=== PATIENT | female | born 1995 | race Caucasian/White ===

== ENCOUNTER → 2019-06-23 | Outpatient (CLI) | payer OTHER | LOC: OD 09:47 | PROVIDERS: ATTEND Family Medicine | DX: Z83.49 Family history of other endocrine, nutritional and metabolic diseases (principal) | CPT/HCPCS: 36415; 84436; 84443; 84480 ==

== ENCOUNTER 2020-04-09 11:36 | Outpatient (CLI) | payer OTHER ==
[2020-04-09 12:32] LABS: APPEARANCE,URINE CLOUDY; BILIRUBIN,URINE NEGATIVE (NEGATIVE); COLOR,URINE YELLOW; GLUCOSE, URINE NEGATIVE (NEGATIVE); KETONES,URINE NEGATIVE (NEGATIVE); LEUKOCYTE ESTERASE,URINE MODERATE (NEGATIVE); NITRITE,URINE NEGATIVE (NEGATIVE); PROTEIN,URINE 30 mg/dL (NEGATIVE); URINE SPECIFIC GRAVITY 1.019; UROBILINOGEN,URINE NEGATIVE mg/dL (<2.0)
[2020-04-09 12:44] LABS: ABSOLUTE LYMPHOCYTES (AUTO) 1.3 10^3/uL (0.5-4.7); ABSOLUTE MONOCYTES (AUTO) 0.5 10^3/uL (0.1-1.4); ABSOLUTE NEUT (AUTO) 6.4 10^3/uL (1.7-8.2); BASOPHILS % (AUTO) 0.2 % (0-2); EOSINOPHILS % (AUTO) 0.6 % (0-6); HEMATOCRIT 34.2 % (36.0-47.0); HEMOGLOBIN 11.6 g/dL (12.0-15.5); LYMPHOCYTES % (AUTO) 15.3 % (13-45); MEAN CORPUSCULAR HEMOGLOBIN 27.2 pg (27.0-33.4); MEAN CORPUSCULAR HGB CONC 33.9 g/dL (32.0-36.0); MEAN CORPUSCULAR VOLUME 80 fl (80-97); MONOCYTES % (AUTO) 6.5 % (3-13); PLATELET COUNT 118 10^3/uL (150-450); RED BLOOD COUNT 4.26 10^6/uL (3.72-5.28); RED CELL DISTRIBUTION WIDTH 13.8 % (11.5-14.0); SEGMENTED NEUTROPHILS % (AUTO) 77.4 % (42-78); TOTAL CELLS COUNTED % (AUTO) 100 %; WHITE BLOOD COUNT 8.3 10^3/uL (4.0-10.5)
[2020-04-09 12:47] LABS: URINE AMPHETAMINES SCREEN NEGATIVE; URINE BARBITURATES SCREEN NEGATIVE; URINE BENZODIAZEPINES SCREEN NEGATIVE; URINE COCAINE SCREEN NEGATIVE; URINE MARIJUANA (THC) SCREEN NEGATIVE; URINE METHADONE SCREEN NEGATIVE; URINE PHENCYCLIDINE SCREEN NEGATIVE
[2020-04-09 13:03] LABS: ALBUMIN 3.5 g/dL (3.5-5.0); ALKALINE PHOSPHATASE 87 U/L (38-126); AMYLASE 55 U/L (30-110); ANION GAP 6 (5-19); ASPARTATE AMINO TRANSFERASE 16 U/L (14-36); BILIRUBIN,TOTAL 0.7 mg/dL (0.2-1.3); BLOOD UREA NITROGEN 6 mg/dL (7-20); CARBON DIOXIDE 22 mmol/L (22-30); CHLORIDE 106 mmol/L (98-107); GLUCOSE 97 mg/dL (75-110); POTASSIUM 3.8 mmol/L (3.6-5.0); TOTAL PROTEIN 6.3 g/dL (6.3-8.2)
--- NOTE | 2020-04-09 13:21 | Non Stress Test Report ---
Non Stress Test Datetime Report Generated by CPN: 04/09/2020 13:21 DEMOGRAPHIC EGA NST: 34.1 INDICATION Indication for Study (NST) Other: abd pain MONITORING Monitor Explained: Monitor Explained; Test Explained; Patient Verbalized Understanding Time on Monitor: 04/09/2020 12:03 Time off Monitor: 04/09/2020 13:15 NST Duration: 72 NST INTERVENTIONS NST Interventions: PO Hydration; Reposition Patient Physician Notified NST: Dr. Miranda on unit, reviewed fht. BABY A: [id number] BABY A Movement : Present Contraction Frequency : none FHR Baseline : 150 Accelerations : 15X15 Decelerations : None Variability : Moderate 6-25bpm NST Review: Meets Criteria for Reactive NST NST Review and Verified By : Aziza Umana RN NST Results: Reactive NST REPORT Report Trigger: Send Report
== END 2020-04-09 13:32 | disposition home or self-care (01) ==
LOC: LC 11:36
PROVIDERS: ATTEND Student in an Organized Health Care Education/Training Program
DX: O99.283 Endocrine, nutritional and metabolic diseases complicating pregnancy, third trimester (principal); E86.0 Dehydration; R10.9 Unspecified abdominal pain; M54.9 Dorsalgia, unspecified; Z3A.34 34 weeks gestation of pregnancy
CPT/HCPCS: 36415; 59025; 80053; 80307; 81005; 82150; 83690; 85025; 87086

== ENCOUNTER 2020-05-17 01:25 | Inpatient (IN) | payer OTHER ==
[2020-05-11 16:01] LABS: ABSOLUTE LYMPHOCYTES (AUTO) 1.7 10^3/uL (0.5-4.7); ABSOLUTE MONOCYTES (AUTO) 0.7 10^3/uL (0.1-1.4); ABSOLUTE NEUT (AUTO) 7.3 10^3/uL (1.7-8.2); BASOPHILS % (AUTO) 0.2 % (0-2); EOSINOPHILS % (AUTO) 0.3 % (0-6); HEMATOCRIT 38.2 % (36.0-47.0); HEMOGLOBIN 12.5 g/dL (12.0-15.5); LYMPHOCYTES % (AUTO) 17.5 % (13-45); MEAN CORPUSCULAR HEMOGLOBIN 25.9 pg (27.0-33.4); MEAN CORPUSCULAR HGB CONC 32.8 g/dL (32.0-36.0); MEAN CORPUSCULAR VOLUME 79 fl (80-97); MONOCYTES % (AUTO) 7.6 % (3-13); PLATELET COUNT 129 10^3/uL (150-450); RED BLOOD COUNT 4.83 10^6/uL (3.72-5.28); RED CELL DISTRIBUTION WIDTH 14.5 % (11.5-14.0); SEGMENTED NEUTROPHILS % (AUTO) 74.4 % (42-78); TOTAL CELLS COUNTED % (AUTO) 100 %; WHITE BLOOD COUNT 9.9 10^3/uL (4.0-10.5)
[2020-05-11 16:09] LABS: APPEARANCE,URINE CLEAR; BILIRUBIN,URINE NEGATIVE (NEGATIVE); COLOR,URINE YELLOW; GLUCOSE, URINE NEGATIVE (NEGATIVE); KETONES,URINE NEGATIVE (NEGATIVE); LEUKOCYTE ESTERASE,URINE NEGATIVE (NEGATIVE); NITRITE,URINE NEGATIVE (NEGATIVE); PROTEIN,URINE NEGATIVE (NEGATIVE); URINE SPECIFIC GRAVITY 1.011; UROBILINOGEN,URINE NEGATIVE mg/dL (<2.0)
[2020-05-11 16:33] LABS: URINE AMPHETAMINES SCREEN NEGATIVE; URINE BARBITURATES SCREEN NEGATIVE; URINE BENZODIAZEPINES SCREEN NEGATIVE; URINE COCAINE SCREEN NEGATIVE; URINE MARIJUANA (THC) SCREEN NEGATIVE; URINE METHADONE SCREEN NEGATIVE; URINE PHENCYCLIDINE SCREEN NEGATIVE
[2020-05-17] MEDS ORDERED: CEFAZOLIN 2 GM/D5W RTU 2 GM/50 ML RTUPB IV PRN (05:00)
[2020-05-17] MEDS ORDERED: OXYTOCIN/0.9 % SODIUM CHLORIDE 30 UNIT/500 ML RTUINJ ONE (07:39)
[2020-05-17] MEDS ORDERED: ROPIVACAINE HCL 0.2% INJ/PF (2 MG/ML) 20 ML SDV ONE ×2 (07:39→10:04)
[2020-05-17] MEDS ORDERED: FENTANYL CITRATE INJ/PF 100 MCG/2 ML AMPUL ONE (07:39)
[2020-05-17] MEDS ORDERED: OXYTOCIN 10 UNIT/ML VIAL ONE (07:39)
[2020-05-17] MEDS ORDERED: KETOROLAC TROMETHAMINE INJ/PF 30 MG/1 ML SDV ONE (07:39)
[2020-05-17] MEDS ORDERED: PHENYLEPHRINE HCL INJ/PF 10 MG/1 ML SDV ONE (07:39)
[2020-05-17] MEDS ORDERED: ONDANSETRON HCL INJ/PF 4 MG/2 ML SDV ONE (07:40)
[2020-05-17] MEDS ORDERED: ACETAMINOPHEN 1,000 MG/100 ML RTUPB IV ONE (07:40)
[2020-05-17] MEDS ORDERED: FENTANYL CITRATE INJ/PF 100 MCG/2 ML AMPUL IV PRN ×3 (08:45)
[2020-05-17] MEDS ORDERED: OXYCODONE-ACETAMINOPHEN 5-325 MG TABLET PO PRN ×3 (08:45→09:46)
[2020-05-17] MEDS ORDERED: ONDANSETRON HCL INJ/PF 4 MG/2 ML SDV IV PRN (08:45)
[2020-05-17] MEDS ORDERED: MORPHINE SULFATE 10 MG/ML INJ IV PRN (08:45)
[2020-05-17] MEDS ORDERED: MEPERIDINE HCL/PF INJ 25 MG/1 ML DISP.SYRIN IV PRN (08:45)
[2020-05-17] MEDS ORDERED: DIPHENHYDRAMINE HCL 50 MG/ML VIAL IV PRN (08:45)
[2020-05-17] MEDS ORDERED: PROMETHAZINE HCL INJ 25 MG/1 ML VIAL IV PRN ×3 (08:45→09:46)
[2020-05-17] MEDS ORDERED: DIPH/PERTUSS(ACELL)/TETANUS VAC/PF 0.5 ML SYR (>=10YO) IM PRN (09:46)
[2020-05-17] MEDS ORDERED: SIMETHICONE 80 MG TAB.CHEW PO PRN (09:46)
[2020-05-17] MEDS ORDERED: RINGERS SOLUTION,LACTATED 1,000 ML IV PRN (09:46)
[2020-05-17] MEDS ORDERED: DEXTROSE 40% GEL 15 GM TUBE PO PRN ×2 (09:46)
[2020-05-17] MEDS ORDERED: OXYTOCIN/0.9 % SODIUM CHLORIDE 30 UNIT/500 ML RTUINJ IV PRN (09:46)
[2020-05-17] MEDS ORDERED: ACETAMINOPHEN 325 MG TABLET PO PRN (09:46)
[2020-05-17] MEDS ORDERED: GLUCAGON,HUMAN RECOMB 1 MG INJ SUBCUT PRN (09:46)
[2020-05-17] MEDS ORDERED: MEASLES,MUMPS&RUBELLA VACC/PF 0.5 ML VIAL SUBCUT PRN (09:46)
[2020-05-17] MEDS ORDERED: DEXTROSE 50%-WATER 25 GM/50 ML DISP.SYRIN IV PRN ×2 (09:46)
[2020-05-17] MEDS ORDERED: HYDROMORPHONE HCL INJ/PF 2 MG/ML AMPULE IV PRN (09:49)
--- NOTE | 2020-05-17 10:11 | Operative Report ---
Operative Report DATE OF SURGERY: 05/17/20 PREOPERATIVE DIAGNOSIS: Intrauterine at 39 + weeks EGA. Breech prese ntation POSTOPERATIVE DIAGNOSIS: Same as above. Left paratubal cyst OPERATION: Primary section and removal of left paratubal cyst SURGEON: JAIRO CONNER ANESTHESIA: Spinal TISSUE REMOVED OR ALTERED: Placenta and left paratubal cyst COMPLICATIONS: None ESTIMATED BLOOD LOSS: 300 QUANTITATIVE BLOOD LOSS: 303 INTRAOPERATIVE FINDINGS: Normal appearing uterus with small 1.5 cm fibroid subserosal on posterior lower uterus. Bilateral ovaries are normal as is right fallopian tube. Left fallopian tube is normal but there is a 2 cm paratubal cyst. AMniotic fluid clear, small amount. Rommel breech presentation. Umbilical cord short. Viable female with Apgars of 8,9 at one and five minutes. PROCEDURE: IV fluids: per anesthesia record Urinary output: 300 cc clear yellow urine Findings: Normal-appearing uterus with 1.5 cm subserosal fibroid on posterior lower uterus, bilateral ovaries normal, right fallopian tube negative, left fallopian tube with 2 cm paratubal cyst. Placenta grossly normal. Viable female with Apgars of 8 and 9, at 1 and 5 minutes respectively. Position: To recovery room in stable condition Description of procedure: The patient was taken to the operating room and spinal anesthesia was administered and found to be adequate. She was then placed on the OR table in the supine position with a slight leftward tilt. Patient was prepped and draped in usual sterile fashion. Ancef 2 gms was given IV prior to the procedure for infection prophylaxis. Timeout was taken. A Pfannenstiel skin incision was then made approximately 3 cm above the pubic symphysis and carried down to level the rectus fascia. The rectus fascia was then nicked in the midline with a scalpel and the fascial incision was extended laterally with use of curved Martins scissors. The rectus fascia was then grasped with 2 Kocker clamps elevated and the underlying rectus muscle was dissected off both bluntly and sharply. Any bleeding controlled with cautery. The rectus muscles were then split in the midline and the peritoneum was entered. The peritoneal incision was then extended by manually stretching the peritoneum. The bladder blade was positioned. Using pick ups and metsenbaum scissors a bladder flap was created and bladder digitly moved out of harms way. The bladder was then noted to be out of harm's way. A scalpel was then used in the lower uterine for the hysterotomy, slowly until amniotomy was obtained a scant amount of fluid was noted. The uterine incision was then manually stretched. The infant was noted to be in rommel postion back up. The hips were brought to the hysterotomy incision and delivered. Back delivered to the level of the scapula. The legs were then flexed at the knee and reduced. THe chest was turned side to side allowing delivery of each arm. The chest was elevated toward maternal head and the head then delivered with minmal difficulty. The cord was cut clamped and the infant was handed off to the nurse awaiting. began crying after hand off and had good tone during hand off. The placenta was manually delivered. Using a lap gauze the uterus was cleared of all clots and debris. The uterus was then exteriorized and a bladder blade was repositioned. The uterine incision was then closed with 0 Chromic suture in a running locked fashion. A second layer of the same suture was used in a running locked imbricated fashion. The uterine incision was inspected and noted to be hemostatic. The posterior aspect of the uterus was then inspected and anatomy was seen as above. Warm saline was used to remove any clot or debris. Using bovie and hemostat the paratubal cyst was removed from the left mesosalpinx. It was removed intact. The uterus remained firm and was returned to its normal anatomic position within the abdominal cavity. Warm saline irrigation was used to clear all clots and debris from the abdomen. The uterine incision was inspected once more and noted to remain hemostatic. The bladder blade was removed and the peritoneum was closed with 2-0 chromic in a running fashion. The rectus muscles were then reapproximated and the rectus fascia was closed with a #1 PDS in a running fashion. The subcutaneous tissue was then inspected and any bleeding was controlled with Bovie electrocautery. The subcutaneous tissue was then closed with 2-0 Plain Gut suture in a running fashion. The skin was then closed with 4- 0 Monocryl in a running subcuticular fashion. The skin incision was then clean dried and Dermabond was applied over the skin incision. All instrument sponge and needle counts were correct x3 for the procedure the patient tolerated the procedure well. She will proceed to recovery room in stable condition
--- NOTE | 2020-05-17 10:17 | PDOC DELIVERY SUMMARY ---
Delivery Summary - Maternal Hx : I Hx # Term Pregnancies: 1 GUERO: 05/20/20 Gestational Age: 39+4 - Delivery Presentation: Breech Heart Rate Monitoring: Done Pre-Operatively Support Person Present: Yes Location: OR : Scheduled, Primary Placenta: Within Normal Limits Placenta Description: Grosslly normal. Manually delivered intact. Number of Vessels (Cord): 3 - Cord short Nuchal Cord: No Estimated Blood Loss: 300cc Delivery Quantitative Blood Loss (QBL): 303 - Medications Type of Anesthesia:: Spinal - Delivery Personnel RN: PEPPER ROE MD: JAIRO CONNER
[2020-05-17] MEDS ORDERED: MORPHINE SULFATE 10 MG/ML INJ ONE (10:58)
[2020-05-17 11:30] LABS: HEMATOCRIT 36.8 % (36.0-47.0); MEAN CORPUSCULAR HEMOGLOBIN 25.9 pg (27.0-33.4); MEAN CORPUSCULAR HGB CONC 32.6 g/dL (32.0-36.0); MEAN CORPUSCULAR VOLUME 80 fl (80-97); PLATELET COUNT 124 10^3/uL (150-450); RED BLOOD COUNT 4.64 10^6/uL (3.72-5.28); RED CELL DISTRIBUTION WIDTH 14.9 % (11.5-14.0); WHITE BLOOD COUNT 8.5 10^3/uL (4.0-10.5)
--- NOTE | 2020-05-17 12:02 | Delivery Summary ---
Del Sum A-C Datetime Report Generated by CPN: 05/17/2020 12:01 DELIVERY PERSONNEL DELIVERY PERSONNEL: [id number] Delivery Doctor:: Harriet Etienne MD Anesthesiologist:: Dr. Garcia SLIVER FORMER:: Nithya Flor CRNA Labor and Delivery Nurse:: Damian Vicente RN Strap Cutter:: Damian Vicente RN Neonatal Nurse Practitioner:: MICHELLE Zamudio Nursery Nurse:: Summer Vasquez RN Nursery Nurse:: ASCENCION Briscoe Seismic Prospecting Supervisor/SENIOR ARCHITECT: ST Hilary Seismic Prospecting Supervisor/SENIOR ARCHITECT: Dinah Castle CST Additional Personnel: : [facility],ANALYSIS SPECIALIST MATERNAL INFORMATION Delivery Anesthesia: Spinal Medications After Delivery: Pitocin 30 Units in 500ml NS/D5W Delivery QBL: 305 Maternal Complications: None LABOR SUMMARY EDC: 05/20/2020 00:00 No. Babies in Womb: 1 Attempted: No Labor Anesthesia: None LABOR INFORMATION Reason for Induction: Not Applicable Oxytocin: N/A Group B Beta Strep: Negative Antibiotics Time of Last Dose: 0 Steroids Given: None Reason Steroids Not Administered: Not Applicable MEMBRANES Membranes Rupture Method: Artificial Rupture of Membranes: 05/17/2020 08:31 Length of Rupture (hr): 0.05 Amniotic Fluid Color: Clear Amniotic Fluid Amount: Scant Amniotic Fluid Odor: Normal STAGES OF LABOR Stage 3 hr: 0 Stage 3 min: 1 VAGINAL DELIVERY Episiotomy: None Laceration #1: None Laceration Extension #1: N/A Laceration Repair: Not Applicable Sponge Count Correct: N/A Sharps Count Correct: N/A CSECTION DELIVERY Primary Indication: Breech Presentation Secondary Indication: Breech Presentation CSection Urgency: Scheduled CSection Incidence: Primary Labor: N/A Elective: N/A CSection Incision: Lower Uterine Transverse BABY A INFORMATION Infant Delivery Date/Time: 05/17/2020 08:34 Method of Delivery: Nurse Controlled Delivery: No Born in Route : No : N/A Forceps: N/A Vacuum Extraction: N/A Shoulder Dystocia : No PRESENTATION/POSITION BABY A Presentation: Breech Cephalic Presentation: N/A Breech Presentation: Rommel PLACENTA INFORMATION BABY A Placenta Delivery Time : 05/17/2020 08:35 Placenta Method of Delivery: Manual Removal Placenta Status: Delivered SCORES BABY A Heart Rate 1 min: >100 bpm Resp Effort 1 min: Good Cry Reflex Irritability 1 min: Cough or Sneeze or Pulls Away Muscle Tone 1 min: Active Motion Color 1 min: Blue/Pale Resuscitation Effort 1 min: Tactile Stimulation SCORE 1 MIN: 8 Heart Rate 5 min: >100 bpm Resp Effort 5 min: Good Cry Reflex Irritability 5 min: Cough or Sneeze or Pulls Away Muscle Tone 5 min: Active Motion Color 5 min: Body [place], Extremities Blue Resuscitation Effort 5 min: Tactile Stimulation SCORE 5 MIN: 9 INFANT INFORMATION BABY A Gestational Age at Delivery: 39.4 Gestational Status: Full Term- 39- 40.6 Weeks Outcome : Liveborn Infant Condition : Stable Sex: Female IDENTIFICATION BABY A Verification Date/Time: 05/17/2020 08:40 ID Band Number: [id number] Mother's Name Verified: Yes Infant RN Verifying Infant: TMartin,RN Additional Verifying Personnel: DomenicaRN WEIGHT/LENGTH BABY A Birthweight (gm): 3400 Infant Weight (lb): 7 Infant Weight (oz): 8 Infant Length (in): 19.75 Length (cm): 50.17 CORD INFORMATION BABY A No. Cord Vessels: 2 Nuchal Cord : N/A Cord Blood Taken: Yes-For Eval (Mom's Blood Type - or O+) Infant Suction: None ASSESSMENT BABY A Skin to Skin: No BABY B INFORMATION : N/A
[2020-05-17] MEDS: KETOROLAC TROMETHAMINE INJ/PF 30 MG/1 ML SDV IV SCH ×2 (15:37→21:24)
[2020-05-17] MEDS: OXYCODONE-ACETAMINOPHEN 5-325 MG TABLET PO PRN (18:01)
[2020-05-17] MEDS: DOCUSATE SODIUM 100 MG CAPSULE PO SCH (18:03)
--- NOTE | 2020-05-17 18:33 | Birth Certificate Data ---
Cert Data Datetime Report Generated by CPN: 05/17/2020 18:33 CERTIFICATE DATA 48b. Now Livin (04/09/2020 11:42:Krystle Choe RN) RISK FACTORS IN THIS 49a. Diabetes: No (04/09/2020 11:42:Krystle Choe RN) 49b. Hypertension: No (04/09/2020 11:42:Krystle Choe RN) 49c. Previous Births: 0 (04/09/2020 11:42:Krystle Choe RN) Stillborns: No (04/09/2020 11:42:Krystle Choe RN) IUGR: No (04/09/2020 11:42:Krystle Choe RN) 49e. Infertility Treatment: No (04/09/2020 11:42:Krystle Choe RN) 49f. Previous Cesareans: 0 (04/09/2020 11:42:Krystle Choe RN) Mother's Height 50b. Height Inches: 64 (05/17/2020 09:02:QS system process) 50b. Height Inches: 64 (05/17/2020 08:48:QS system process) 50b. Height Inches: 64 (05/17/2020 08:47:QS system process) 50b. Height Inches: 64 (05/17/2020 06:24:QS system process) 50b. Height Inches: 64 (04/09/2020 11:58:QS system process) 50b. Height Inches: 64 (04/09/2020 11:55:QS system process) Mother's Weight 51a. Pre- Weight: 165 (04/09/2020 11:42:Krystle Choe RN) 51b. Weight at Time of Delivery: 172 (05/17/2020 09:02:QS system process) 51b. Weight at Time of Delivery: 172 (05/17/2020 08:48:QS system process) 51b. Weight at Time of Delivery: 172 (05/17/2020 08:47:QS system process) 51b. Weight at Time of Delivery: 172 (05/17/2020 06:24:QS system process) 51b. Weight at Time of Delivery: 176 (05/17/2020 05:42:QS system process) 51b. Weight at Time of Delivery: 242 (04/09/2020 11:58:QS system process) 51b. Weight at Time of Delivery: 242 (04/09/2020 11:55:QS system process) Infections Present/Treated 53a. Gonorrhea: No (04/09/2020 11:42:Krystle Choe RN) 53b. Syphilis: No (04/09/2020 11:42:Krystle Choe RN) 53c. Chlamydia: No (04/09/2020 11:42:Krystle Choe RN) 53d. Hepatitis B: No (04/09/2020 11:42:Krystle Choe RN) Results this Hospital Visit: Negative (04/09/2020 11:42:Krystle Choe RN) Onset of Labor 56a. PROM >12 Hrs: 0.05 (04/09/2020 11:42:QS system process) 57a. Induction of Labor: N/A (04/09/2020 11:42:Damian Vicente RN) 57c. Non-Vertex Presentation A: N/A (04/09/2020 11:42:Damian Vicente RN) 57d. Steroids - Lung Mat: None (04/09/2020 11:42:Damian Vicente RN) : Not Applicable (04/09/2020 11:42:Damian Vicente RN) : 0 (04/09/2020 11:42:Damian Vicente RN) 57g. Moderate/Heavy Meconium: Clear (04/09/2020 11:42:Damian Vicente RN) 57h. Intolerance of Labor: Breech Presentation (04/09/2020 11:42:Damian Vicente RN) : Breech Presentation (04/09/2020 11:42:Damian Vicente RN) 57i. Epidural/Spinal Anesthesia: None (04/09/2020 11:42:Damian Vicente RN) Method of Delivery 58a. Forceps - Unsuccessful : N/A (04/09/2020 11:42:Damian Vicente RN) 58b. Vacuum - Unsuccessful A: N/A (04/09/2020 11:42:Damian Vicente RN) 58c. Presentation at Baby A: N/A (04/09/2020 11:42:Damian Vicente RN) Baby A: Rommel (04/09/2020 11:42:Damian Vicente RN) Final Route and Method of Del Baby A: (04/09/2020 11:42:Damian Vicente RN) 58e. Trial of Labor Attempted: No (04/09/2020 11:42:Damian Vicente RN) Baby A: N/A (04/09/2020 11:42:Damian Vicente RN) Baby B: N/A (04/09/2020 11:42:Damian Vicente RN) Maternal Morbidity 59b. 3rd or 4th Degree Lacs: None (04/09/2020 11:42:Damian Vicente RN) Birthweight Baby A: 3400 (04/09/2020 11:42:Damian Vicente RN) 60a. Pounds : 7 (04/09/2020 11:42:QS system process) 60b. Ounces: 8 (04/09/2020 11:42:QS system process) 61. GA at Delivery Baby A: 39.4 (04/09/2020 11:42:Damian Vicente RN) : Full Term- 39- 40.6 Weeks (04/09/2020 11:42:QS system process) 62a. 5 Minute Baby A: 9 (04/09/2020 11:42:QS system process)
--- NOTE | 2020-05-17 19:03 | Birth Certificate Data ---
Cert Data Datetime Report Generated by CPN: 05/17/2020 19:02 CERTIFICATE DATA 48b. Now Livin (04/09/2020 11:42:Krystle Choe RN) RISK FACTORS IN THIS 49a. Diabetes: No (04/09/2020 11:42:Krystle Choe RN) 49b. Hypertension: No (04/09/2020 11:42:Krystle Choe RN) 49c. Previous Births: 0 (04/09/2020 11:42:Krystle Choe RN) Stillborns: No (04/09/2020 11:42:Krystle Choe RN) IUGR: No (04/09/2020 11:42:Krystle Choe RN) 49e. Infertility Treatment: No (04/09/2020 11:42:Krystle Choe RN) 49f. Previous Cesareans: 0 (04/09/2020 11:42:Krystle Choe RN) Mother's Height 50b. Height Inches: 64 (05/17/2020 09:02:QS system process) 50b. Height Inches: 64 (05/17/2020 08:48:QS system process) 50b. Height Inches: 64 (05/17/2020 08:47:QS system process) 50b. Height Inches: 64 (05/17/2020 06:24:QS system process) 50b. Height Inches: 64 (04/09/2020 11:58:QS system process) 50b. Height Inches: 64 (04/09/2020 11:55:QS system process) Mother's Weight 51a. Pre- Weight: 165 (04/09/2020 11:42:Krystle Choe RN) 51b. Weight at Time of Delivery: 172 (05/17/2020 09:02:QS system process) 51b. Weight at Time of Delivery: 172 (05/17/2020 08:48:QS system process) 51b. Weight at Time of Delivery: 172 (05/17/2020 08:47:QS system process) 51b. Weight at Time of Delivery: 172 (05/17/2020 06:24:QS system process) 51b. Weight at Time of Delivery: 176 (05/17/2020 05:42:QS system process) 51b. Weight at Time of Delivery: 242 (04/09/2020 11:58:QS system process) 51b. Weight at Time of Delivery: 242 (04/09/2020 11:55:QS system process) Infections Present/Treated 53a. Gonorrhea: No (04/09/2020 11:42:Krystle Choe RN) 53b. Syphilis: No (04/09/2020 11:42:Krystle Choe RN) 53c. Chlamydia: No (04/09/2020 11:42:Krystle Choe RN) 53d. Hepatitis B: No (04/09/2020 11:42:Krystle Choe RN) Results this Hospital Visit: Negative (04/09/2020 11:42:Krystle Choe RN) Onset of Labor 56a. PROM >12 Hrs: 0.05 (04/09/2020 11:42:QS system process) 57a. Induction of Labor: N/A (04/09/2020 11:42:Damian Vicente RN) 57c. Non-Vertex Presentation A: N/A (04/09/2020 11:42:Damian Vicente RN) 57d. Steroids - Lung Mat: None (04/09/2020 11:42:Damian Vicente RN) 57d. Steroids - Lung Mat: Not Applicable (04/09/2020 11:42:Damian Vicente RN) 57e. Antibiotics During Labor: 0 (04/09/2020 11:42:Damian Vicente RN) 57g. Moderate/Heavy Meconium: Clear (04/09/2020 11:42:Damian Vicente RN) 57h. Intolerance of Labor: Breech Presentation (04/09/2020 11:42:Damian Vicente RN) : Breech Presentation (04/09/2020 11:42:Damian Vicente RN) 57i. Epidural/Spinal Anesthesia: None (04/09/2020 11:42:Damian Vicente RN) Method of Delivery 58a. Forceps - Unsuccessful A: N/A (04/09/2020 11:42:Damian Vicente RN) 58b. Vacuum - Unsuccessful A: N/A (04/09/2020 11:42:Damian Vicente RN) 58c. Presentation at 58c. Presentation at - A : N/A (04/09/2020 11:42:Damian Vicente RN) 58c. Presentation at - A : Rommel (04/09/2020 11:42:Damian Vicente RN) 58c. Presentation at - A : Breech (04/09/2020 11:42:Damian Vicente RN) Final Route and Method of Del 58d. Baby A Route/Delivery: (04/09/2020 11:42:Damian Vicente RN) 58e. Trial of Labor Attempted: No (04/09/2020 11:42:Damian Vicente RN) 58e. Trial of Labor Attempted A: N/A (04/09/2020 11:42:Damian Vicente RN) 58e. Trial of Labor Attempted B: N/A (04/09/2020 11:42:Damian Vicente RN) Maternal Morbidity 59b. 3rd or 4th Degree Lacs: None (04/09/2020 11:42:Damian Vicente RN) Birthweight Baby A: 3400 (04/09/2020 11:42:Damian Vicente RN) 60a. Pounds : 7 (04/09/2020 11:42:QS system process) 60b. Ounces: 8 (04/09/2020 11:42:QS system process) 61. GA at Delivery Baby A: 39.4 (04/09/2020 11:42:Damian Vicente RN) : Full Term- 39- 40.6 Weeks (04/09/2020 11:42:QS system process) 62a. 5 Minute Baby A: 9 (04/09/2020 11:42:QS system process)
[2020-05-18] MEDS: OXYCODONE-ACETAMINOPHEN 5-325 MG TABLET PO PRN ×2 (01:50→17:48)
[2020-05-18] MEDS: KETOROLAC TROMETHAMINE INJ/PF 30 MG/1 ML SDV IV SCH (05:40)
[2020-05-18 07:39] LABS: HEMATOCRIT 34.4 % (36.0-47.0); HEMOGLOBIN 11.4 g/dL (12.0-15.5); MEAN CORPUSCULAR HEMOGLOBIN 25.9 pg (27.0-33.4); MEAN CORPUSCULAR HGB CONC 33.1 g/dL (32.0-36.0); MEAN CORPUSCULAR VOLUME 78 fl (80-97); PLATELET COUNT 117 10^3/uL (150-450); WHITE BLOOD COUNT 11.3 10^3/uL (4.0-10.5)
[2020-05-18] MEDS: DOCUSATE SODIUM 100 MG CAPSULE PO SCH ×3 (10:24→17:40)
[2020-05-18] MEDS: PRENATAL VITAMIN W DHA CAPSULE PO SCH ×2 (10:25→12:52)
[2020-05-18] MEDS: IBUPROFEN 800 MG TABLET PO SCH ×2 (13:10→21:01)
--- NOTE | 2020-05-18 13:40 | PDOC PROGRESS REPORT ---
Subjective-OB Progress Note for:: 05/18/20 Subjective: reports bleeding slowing, pain controlled with current meds, + passing gas. denies needs Physical Exam (OB) Vital Signs: Temp Pulse Resp BP Pulse Ox 98.1 F 83 17 109/57 L 99 05/18/20 11:29 05/18/20 11:29 05/18/20 11:29 05/18/20 11:29 05/18/20 11:29 Intake & Output 05/17/20 05/18/20 05/19/20 06:59 06:59 06:59 Intake Total 1700 300 Output Total 1650 Balance 50 300 Weight 78.018 kg - Incision: Open - no s/s infection. no drainage, Well Approximated Closure Type: Surgical Glue - Maternal Morbidity 59. Maternal Morbidity (serious complications experinced by the mother associated with labor and delivery: None of the above - Abdomen Description: Firm Hernia Present: No Fundal Description: Firm Fundal Height: u/u - u/2 - Abdominal Distension: No distension Tenderness: Nontender - Extremities Lower extremities: Mikayla's sign - neg Calf: Normal, Nontender Objective-Diagnostic Laboratory: 05/18/20 07:08 05/18/20 05/18/20 07:08 07:48 WBC 11.3 H RBC 4.40 Hgb 11.4 L Hct 34.4 L MCV 78 L MCH 25.9 L MCHC 33.1 RDW 15.0 H Plt Count 117 L Blood Type O NEGATIVE Assessment and Plan(PN) - Time Spent with Patient Time with patient: Less than 15 minutes - Disposition Anticipated Discharge Disposition: Home, Self Care Anticipated Discharge Timeframe: within 48 hours
[2020-05-19] MEDS: IBUPROFEN 800 MG TABLET PO SCH (05:27)
[2020-05-19 07:18] LABS: HEMATOCRIT 32.2 % (36.0-47.0); HEMOGLOBIN 10.6 g/dL (12.0-15.5); MEAN CORPUSCULAR HEMOGLOBIN 25.8 pg (27.0-33.4); MEAN CORPUSCULAR HGB CONC 32.8 g/dL (32.0-36.0); MEAN CORPUSCULAR VOLUME 79 fl (80-97); PLATELET COUNT 114 10^3/uL (150-450); RED BLOOD COUNT 4.09 10^6/uL (3.72-5.28); RED CELL DISTRIBUTION WIDTH 14.9 % (11.5-14.0); WHITE BLOOD COUNT 10.1 10^3/uL (4.0-10.5)
[2020-05-19 08:03] VITALS: BP 123/87
[2020-05-19] MEDS: PRENATAL VITAMIN W DHA CAPSULE PO SCH (09:49)
[2020-05-19] MEDS: DOCUSATE SODIUM 100 MG CAPSULE PO SCH (09:49)
--- NOTE | 2020-05-19 09:52 | PDOC DISCHARGE SUMMARY ---
Impression - Admit/DC Date/PCP Admission Date/Primary Care Provider: 05/17/20 05:41 EMILI WASHINGTON MD Discharge Date: 05/19/20 - Discharge Diagnosis (1) Breech presentation of fetus delivered Is this a current diagnosis for this admission?: Yes (2) S/P primary low transverse Is this a current diagnosis for this admission?: Yes (3) Thrombocytopenia Is this a current diagnosis for this admission?: Yes - Additional Information Resuscitation Status: Full Code Discharge Diet: Regular Discharge Activity: Balance Activity w/Rest, No Lifting Over 10 Pounds, No Lifting/Push/Pulling, Pelvic Rest, No tub bath Referrals: EMILI WASHINGTON MD [Primary Care Provider] - Prescriptions: Oxycodone HCl/Acetaminophen [Percocet 5-325 mg Tablet] 1 tab PO Q4HP PRN #30 tablet PRN Reason: For Pain Scale 3-5 Ibuprofen [Motrin 800 mg Tablet] 800 mg PO Q8HP PRN #60 tablet PRN Reason: Home Medications: Vit No.130/Iron/Folic [ Tablet] 1 each PO DAILY 04/09/20 Ibuprofen [Motrin 800 mg Tablet] 800 mg PO Q8HP PRN #60 tablet 05/19/20 Oxycodone HCl/Acetaminophen [Percocet 5-325 mg Tablet] 1 tab PO Q4HP PRN #30 tablet 05/19/20 HPI Reason(s) for Admission: Ceasarean Section-Primary Procedures: None Intrapartum Procedure(s): : Low Cervical, Transverse Hospital Course 59. Maternal Morbidity (serious complications experinced by the mother associated with labor and delivery: None of the above Results Laboratory Results: WBC 10.1 10^3/uL (4.0-10.5) 05/19/20 07:04 RBC 4.09 10^6/uL (3.72-5.28) 05/19/20 07:04 Hgb 10.6 g/dL (12.0-15.5) L 05/19/20 07:04 Hct 32.2 % (36.0-47.0) L 05/19/20 07:04 MCV 79 fl (80-97) L 05/19/20 07:04 MCH 25.8 pg (27.0-33.4) L 05/19/20 07:04 MCHC 32.8 g/dL (32.0-36.0) 05/19/20 07:04 RDW 14.9 % (11.5-14.0) H 05/19/20 07:04 Plt Count 114 10^3/uL (150-450) L 05/19/20 07:04 Lymph % (Auto) 17.5 % (13-45) 05/11/20 15:31 [place] % (Auto) 7.6 % (3-13) 05/11/20 15:31 Eos % (Auto) 0.3 % (0-6) 05/11/20 15:31 Baso % (Auto) 0.2 % (0-2) 05/11/20 15:31 Absolute Neuts (auto) 7.3 10^3/uL (1.7-8.2) 05/11/20 15:31 Absolute Lymphs (auto) 1.7 10^3/uL (0.5-4.7) 05/11/20 15:31 Absolute Monos (auto) 0.7 10^3/uL (0.1-1.4) 05/11/20 15:31 Absolute Eos (auto) 0.0 10^3/uL (0.0-0.6) 05/11/20 15:31 Absolute Basos (auto) 0.0 10^3/uL (0.0-0.2) 05/11/20 15:31 Seg Neutrophils % 74.4 % (42-78) 05/11/20 15:31 Urine Color YELLOW 05/11/20 15:35 Urine Appearance CLEAR 05/11/20 15:35 Urine pH 7.0 (5.0-9.0) 05/11/20 15:35 Ur Specific [place] 1.011 05/11/20 15:35 Urine Protein NEGATIVE mg/dL (NEGATIVE) 05/11/20 15:35 Urine Glucose (UA) NEGATIVE mg/dL (NEGATIVE) 05/11/20 15:35 Urine Ketones NEGATIVE mg/dL (NEGATIVE) 05/11/20 15:35 Urine Blood NEGATIVE (NEGATIVE) 05/11/20 15:35 Urine Nitrite NEGATIVE (NEGATIVE) 05/11/20 15:35 Urine Bilirubin NEGATIVE (NEGATIVE) 05/11/20 15:35 Urine Urobilinogen NEGATIVE mg/dL (<2.0) 05/11/20 15:35 Ur Leukocyte Esterase NEGATIVE (NEGATIVE) 05/11/20 15:35 Urine WBC (Auto) 1 /HPF 05/11/20 15:35 Urine RBC (Auto) 0 /HPF 05/11/20 15:35 U Hyaline Cast (Auto) 1 /LPF 05/11/20 15:35 Urine Bacteria (Auto) TRACE /HPF 05/11/20 15:35 Squamous Epi Cells Auto 1 /HPF 05/11/20 15:35 Urine Mucus (Auto) RARE /LPF 05/11/20 15:35 Urine Ascorbic Acid NEGATIVE (NEGATIVE) 05/11/20 15:35 Urine Opiates Screen NEGATIVE 05/11/20 15:35 Urine Methadone Screen NEGATIVE 05/11/20 15:35 Ur Barbiturates Screen NEGATIVE 05/11/20 15:35 Ur Phencyclidine Scrn NEGATIVE 05/11/20 15:35 Ur Amphetamines Screen NEGATIVE 05/11/20 15:35 U Benzodiazepines Scrn NEGATIVE 05/11/20 15:35 Urine Cocaine Screen NEGATIVE 05/11/20 15:35 U Marijuana (THC) Screen NEGATIVE 05/11/20 15:35 COVID-19 Source NASOPHARYNGEAL 05/11/20 15:32 COVID-19 (WILFREDO) NOT DETECTED 05/11/20 15:32 Blood Type O NEGATIVE 05/18/20 07:48 Blood Type Confirm O NEGATIVE 05/17/20 10:07 Antibody Screen POSITIVE 05/16/20 16:30 Antibody Identification RHOGAM INDUCED ANTI-D 05/16/20 16:30 Screen NEGATIVE 05/18/20 07:48 Crossmatch See Detail 05/16/20 16:30 Plan Plan of Treatment: f/u at [facility] on Friday Time Spent: Less than 30 Minutes
== END 2020-05-19 13:00 | disposition home or self-care (01) | DRG 787 ==
LOC: 2S 05:41
PROVIDERS: ADMIT Obstetrics & Gynecology; ATTEND Obstetrics & Gynecology
PROC: 10D00Z1 Extraction of Products of Conception, Low, Open Approach (ICD-10-PCS; principal; 2020-05-17)
PROC: 3E0334Z Introduction of Serum, Toxoid and Vaccine into Peripheral Vein, Percutaneous Approach (ICD-10-PCS; 2020-05-17)
DX: O32.1XX0 Maternal care for breech presentation, not applicable or unspecified (principal); O99.12 Other diseases of the blood and blood-forming organs and certain disorders involving the immune mechanism complicating childbirth; O69.3XX0 Labor and delivery complicated by short cord, not applicable or unspecified; D69.6 Thrombocytopenia, unspecified; O34.83 Maternal care for other abnormalities of pelvic organs, third trimester; N94.89 Other specified conditions associated with female genital organs and menstrual cycle; Z3A.39 39 weeks gestation of pregnancy; Z37.0 Single live birth; Z29.13 Encounter for prophylactic Rho(D) immune globulin; Z11.59 Encounter for screening for other viral diseases
CPT/HCPCS: 1961; 36415; 59025; 64486; 76942; 80307; 81001; 85027; 85461; 86850; 86870; 86900; 86901; 86920; 86922; 87635; 88304; 94760; 94799; C1758; C9803; J0131; J1885; J2270; J2370; J2405; J2590; J2790; J2795; J3010; J3490; J7120